=== PATIENT | male | born 1940 | race Caucasian/White ===

== ENCOUNTER 2017-10-25 10:05 | Emergency (ER) | payer OTHER ==
[~2017-10-25] VITALS: Ht 172.7 cm; Wt 108.9 kg
[~2017-10-25 10:05] MED LIST: FORTAMET500 MG; KETO10TA2 PO; LIPITOR20 MG; METFORMIN HCL500 MG
[2017-10-25] MEDS ORDERED: RANITIDINE HCL300 M1 (10:18)
[2017-10-25] MEDS ORDERED: ATORVASTATIN CA20 MG (10:18)
[2017-10-25] MEDS ORDERED: CLOPIDOGREL BIS75 MG (10:18)
[2017-10-25] MEDS ORDERED: PNEU16DI2 (10:18)
[2017-10-25] MEDS ORDERED: PYRIDIUM100 MG PO (12:15)
[2017-10-25] MEDS ORDERED: CIPRO500 MG PO (12:15)
== END 2017-10-25 13:35 | disposition home or self-care (01) ==
LOC: ER 10:05
DX: N39.0 Urinary tract infection, site not specified (principal); B96.20 Unspecified Escherichia coli [E. coli] as the cause of diseases classified elsewhere

== ENCOUNTER 2018-03-25 07:56 | Outpatient (CLI) | payer OTHER ==
[~2018-03-25 07:56] MED LIST changes: +ATORVASTATIN CA20 MG; +CIPRO500 MG PO; +CLOPIDOGREL BIS75 MG; +PNEU16DI2; +PYRIDIUM100 MG PO; +RANITIDINE HCL300 M1
== END 2018-03-25 08:02 | disposition home or self-care (01) ==
LOC: SONOGRAMA 07:56
DX: R10.84 Generalized abdominal pain (principal); Z86.010 Personal history of colon polyps; K57.30 Diverticulosis of large intestine without perforation or abscess without bleeding

== ENCOUNTER 2018-05-13 08:28 | Emergency (ER) | payer OTHER ==
[~2018-05-13] VITALS: Ht 172.7 cm; Wt 99.8 kg
== END 2018-05-13 10:43 | disposition home or self-care (01) ==
LOC: ER 08:28
DX: M54.42 Lumbago with sciatica, left side (principal); M54.41 Lumbago with sciatica, right side

== ENCOUNTER 2018-09-26 10:13 | Emergency (ER) | payer OTHER ==
[~2018-09-26] VITALS: Ht 172.7 cm; Wt 104.3 kg
[2018-09-26] MEDS ORDERED: PLAVIX300 MG (11:13)
[2018-09-26] MEDS ORDERED: PROTONIX40 MG (11:13)
[2018-09-26] MEDS ORDERED: METFORMIN HCL500 MG (11:13)
[2018-09-26] MEDS ORDERED: LIPITOR20 MG (11:13)
== END 2018-09-26 15:45 | disposition home or self-care (01) ==
LOC: ER 10:13
DX: S60.470A Other superficial bite of right index finger, initial encounter (principal); W54.0XXA Bitten by dog, initial encounter; Y93.89 Activity, other specified; Y92.89 Other specified places as the place of occurrence of the external cause; Y99.8 Other external cause status; R42 Dizziness and giddiness

== ENCOUNTER 2018-10-22 09:50 | Emergency (ER) | payer OTHER ==
[~2018-10-22] VITALS: Ht 172.7 cm; Wt 104.3 kg
[~2018-10-22 09:50] MED LIST changes: +PLAVIX300 MG; +PROTONIX40 MG
[2018-10-22] MEDS ORDERED: MECLIZINE HCL25 MG PO (12:51)
[2018-10-22] MEDS ORDERED: METOCLOPRAMIDE10 MG PO (12:51)
== END 2018-10-22 13:02 | disposition home or self-care (01) ==
LOC: ER 09:50
DX: R42 Dizziness and giddiness (principal)

== ENCOUNTER 2018-10-30 09:45 | Outpatient (CLI) | payer OTHER ==
[~2018-10-30 09:45] MED LIST changes: +MECLIZINE HCL25 MG PO; +METOCLOPRAMIDE10 MG PO
== END 2018-10-30 17:00 | disposition home or self-care (01) ==
LOC: TOM 09:45
DX: R55 Syncope and collapse (principal); R42 Dizziness and giddiness

== ENCOUNTER 2018-10-30 11:19 | Outpatient (CLI) | payer OTHER | END 2018-10-30 11:25 | disposition home or self-care (01) | LOC: LAB 11:19 | DX: E78.2 Mixed hyperlipidemia (principal); I11.9 Hypertensive heart disease without heart failure; N30.00 Acute cystitis without hematuria; E11.42 Type 2 diabetes mellitus with diabetic polyneuropathy; E11.21 Type 2 diabetes mellitus with diabetic nephropathy; E83.32 Hereditary vitamin D-dependent rickets (type 1) (type 2); N40.0 Benign prostatic hyperplasia without lower urinary tract symptoms; E06.3 Autoimmune thyroiditis ==

== ENCOUNTER 2018-11-03 09:52 | Outpatient (CLI) | payer OTHER | END 2018-11-03 09:58 | disposition home or self-care (01) | LOC: LAB 09:52 | DX: E78.2 Mixed hyperlipidemia (principal); I11.9 Hypertensive heart disease without heart failure; N30.00 Acute cystitis without hematuria ==

== ENCOUNTER 2019-03-11 10:40 | Outpatient (CLI) | payer OTHER | END 2019-03-11 11:25 | disposition home or self-care (01) | LOC: RAD 10:40 | DX: R06.02 Shortness of breath (principal) ==

== ENCOUNTER 2019-03-30 10:04 | Outpatient (CLI) | payer OTHER | END 2019-03-30 10:11 | disposition home or self-care (01) | LOC: MRI 10:04 | DX: M25.562 Pain in left knee (principal) | CPT/HCPCS: 73721 ==

== ENCOUNTER 2019-04-10 07:31 | Outpatient (CLI) | payer OTHER | END 2019-04-10 07:47 | disposition home or self-care (01) | LOC: NUCLEAR 07:31 | DX: I20.9 Angina pectoris, unspecified (principal) | CPT/HCPCS: 78452; 93017; A9500; J0153 ==

== ENCOUNTER 2021-04-05 12:36 | Outpatient (CLI) | payer OTHER | END 2021-04-05 12:42 | disposition home or self-care (01) | LOC: NUCLEAR 12:36 | PROVIDERS: ATTEND Internal Medicine Cardiovascular Disease | DX: I50.1 Left ventricular failure, unspecified (principal) | CPT/HCPCS: 78472; A9530 ==

== ENCOUNTER 2021-06-05 10:16 | Emergency (ER) | payer OTHER ==
[~2021-06-05] VITALS: Ht 172.7 cm; Wt 104.3 kg
[2021-06-05] MEDS ORDERED: ZYRTEC10 M3 PO (12:40)
[2021-06-05] MEDS ORDERED: ATARAX25 MG PO (12:40)
== END 2021-06-05 12:49 | disposition home or self-care (01) ==
LOC: ER 10:16
DX: L29.8 Other pruritus (principal)

== ENCOUNTER 2021-06-16 09:15 | Emergency (ER) | payer OTHER ==
[~2021-06-16] VITALS: Ht 172.7 cm; Wt 104.3 kg
[~2021-06-16 09:15] MED LIST changes: +ATARAX25 MG PO; +ZYRTEC10 M3 PO
[2021-06-16] MEDS ORDERED: ASPIRIN81 MG (09:32)
[2021-06-16] MEDS ORDERED: TENORMIN25 MG (09:32)
[2021-06-16] MEDS ORDERED: ZITHROMAX500 MG PO (13:21)
== END 2021-06-16 13:43 | disposition home or self-care (01) ==
LOC: ER 09:15
DX: R42 Dizziness and giddiness (principal); B96.0 Mycoplasma pneumoniae [M. pneumoniae] as the cause of diseases classified elsewhere

== ENCOUNTER 2021-09-01 07:22 | Outpatient (CLI) | payer OTHER ==
[~2021-09-01 07:22] MED LIST changes: +ASPIRIN81 MG; +TENORMIN25 MG; +ZITHROMAX500 MG PO
== END 2021-09-01 07:26 | disposition home or self-care (01) ==
LOC: NUCLEAR 07:22
PROVIDERS: ATTEND Internal Medicine Cardiovascular Disease
DX: I20.9 Angina pectoris, unspecified (principal)
CPT/HCPCS: 78452; 93017; A9500; J0153

== ENCOUNTER 2021-09-07 10:13 | Outpatient (CLI) | payer OTHER | END 2021-09-07 10:20 | disposition home or self-care (01) | LOC: RAD 10:13 | DX: I10 Essential (primary) hypertension (principal) ==

== ENCOUNTER 2021-09-07 11:00 | Outpatient (CLI) | payer OTHER | END 2021-09-07 11:07 | disposition home or self-care (01) | LOC: LAB 11:00 | DX: J45.998 Other asthma (principal); R06.09 Other forms of dyspnea; E66.8 Other obesity; G47.33 Obstructive sleep apnea (adult) (pediatric) ==

== ENCOUNTER 2021-11-02 11:01 | Emergency (ER) | payer OTHER ==
[~2021-11-02] VITALS: Ht 172.7 cm; Wt 104.3 kg
[2021-11-02] MEDS ORDERED: ANORO ELLIPTA1 EACH IH (11:23)
[2021-11-02] MEDS ORDERED: FLONASE16 GM NS (11:23)
[2021-11-02] MEDS ORDERED: TAMSULOSIN HCL0.4 MG PO (11:24)
[2021-11-02] MEDS ORDERED: FAMOTIDINE20 MG PO (11:24)
[2021-11-02] MEDS ORDERED: MEDROLPACK PO (15:06)
[2021-11-02] MEDS ORDERED: PEPCID AC20 MG PO (15:06)
== END 2021-11-02 15:58 ==
LOC: ER 11:01
DX: U07.1 COVID-19 (principal); B34.9 Viral infection, unspecified; R53.1 Weakness